=== PATIENT | female | born 1975 | race American Indian/Alaskan Native ===

== ENCOUNTER 2018-03-17 06:57 | Inpatient (IN) | payer BC ==
[~2018-03-17 06:57] MED LIST: Dexamethasone 4 mg/1 ml IVPB ONE; Lactated Ringer's 1,000 ML IV ONE
[2018-03-17] MEDS ORDERED: Bupivacaine 0.25% 20 ML INJ IJ ONE (07:25)
[2018-03-17] MEDS ORDERED: Lactated Ringer's 1,000 ML IV ONE ×2 (07:30→10:39)
[2018-03-17] MEDS ORDERED: Dexamethasone 4 mg/1 ml IVPB ONE (07:30)
[2018-03-17] MEDS ORDERED: ceFAZolin IV 1 gm in Dextrose 1 GM/50 ML BAG IVPB ONE (07:51)
[2018-03-17] MEDS ORDERED: ceFAZolin IV 2 gm in Dextrose 2 GM/50 ML BAG IVPB ONE (07:51)
[2018-03-17 08:01] VITALS: BMI 54.8
[2018-03-17] MEDS ORDERED: Propofol 10 mg/ml Inj (20 ML) ONE (08:03)
[2018-03-17] MEDS ORDERED: Midazolam 2 MG/2 ML VIAL ONE (08:03)
[2018-03-17] MEDS ORDERED: Rocuronium 10 mg/ml (5 ml) ONE (08:04)
[2018-03-17] MEDS ORDERED: Phenylephrine 10 mg/ml Inj ONE (08:08)
[2018-03-17] MEDS ORDERED: Neostigmine Methylsulfate 3mg/3ml Syringe IV ONE (09:40)
--- NOTE | 2018-03-17 09:53 | PCM.SURG1 ---
Surgeon's Initial Post Op Note - Surgeon's Notes Surgeon: Barbara Stock Associate: Summer Type of Anesthesia: General Endo Anesthesia Administered By: Cindy Pre-Operative Diagnosis: Morbid obesity Operative Findings: Extensive adhesions of omentum to the anterior abdominal wall as well as adhesions between stomach and liver with near fusion in parts Post-Operative Diagnosis: Morbid obesity Operation Performed: Laparoscopic sleeve gastrectomy, lysis of adhesions, TAP block, upper endoscopy Specimen/Specimens Removed: Partial gastrectomy Estimated Blood Loss: EBL {In ML}: 25 Blood Products Given: N/A Drains Used: No Drains Post-Op Condition: Good Date of Surgery/Procedure: 03/17/18 Time of Surgery/Procedure: 09:52
[2018-03-17] MEDS ORDERED: HYDROmorphone 0.5 mg/0.5 ml ISec IVP PRN ×2 (09:54→09:59)
[2018-03-17] MEDS ORDERED: Dextrose 5%/Lactated Ringer's 1,000 ML IV SCH (10:00)
[2018-03-17] MEDS: Lactated Ringer's 1,000 ML IV SCH ×4 (13:59→23:50)
[2018-03-17 15:48] VITALS: RESP 20
--- NOTE | 2018-03-17 20:32 | OP ---
Copied To: Ne Wheeler MD Attending MD: Ne Wheeler MD PROCEDURE DATE: 03/17/2018 OPERATING SURGEON: Ne Wheeler MD PREOPERATIVE DIAGNOSIS: Morbid obesity. POSTOPERATIVE DIAGNOSIS: Morbid obesity. PROCEDURE: Intraoperative upper endoscopy. TYPE OF ANESTHESIA: General. ESTIMATED BLOOD LOSS: None. SPECIMEN: None. INDICATIONS: This is a 42-year-old female undergoing laparoscopic sleeve gastrectomy. PROCEDURE: An Olympus upper endoscope was inserted into the oropharynx and passed bluntly through the hypopharynx into the proximal esophagus. Insufflation was begun and the scope was passed under direct vision through the proximal, mid, and distal esophagus with care taken to look at a full 360 degrees of exposed mucosa. Beginning at the fundus, the gastric sleeve staple line was carefully examined and found to have no evidence of hemorrhage or intraluminal clot. All excess insufflated air was aspirated and the scope was withdrawn. The patient remained intubated in the operating room for completion of the operative procedure. Ne Wheeler MD
--- NOTE | 2018-03-17 20:52 | OP ---
Copied To: Mahendra Jimenez MD Attending MD: Mahendra Jimenez MD PROCEDURE DATE: 03/17/2018 ANESTHESIA: General. PREOPERATIVE DIAGNOSIS: Morbid obesity. POSTOPERATIVE DIAGNOSIS: Morbid obesity. PROCEDURES: Laparoscopic sleeve gastrectomy, TAP block, upper endoscopy, lysis of adhesions. SURGEON: Mahendra Jimenez MD. BLUEPRINT TRIMMER: Ne Wheeler MD. COMPLICATIONS: None. SPECIMEN: Partial gastrectomy. BLOOD LOSS: Approximately 25 mL. FINDINGS: Extensive omental adhesions to the anterior abdominal wall as well as adhesions between stomach and liver with near fusion. INDICATION: This is a 42-year-old female with a history of morbid obesity, who meets the NIH criteria for bariatric surgery. PROCEDURE: The patient was brought to the operating room and placed in supine position on the operating room table. General endotracheal anesthesia was induced by the anesthesia team. Precautions were taken to pad the patient well using gel padding in the back, feet, and arms to prevent postoperative pain. The patient was prepped and draped in the usual sterile fashion. A time out took place among the entire OR team to ensure proper patient, procedure and antibiosis. The lead assistant manager placed a Veress needle in the left upper quadrant below the costal margin to establish pneumoperitoneum to 15 mmHg. A 12-mm Optiview port along with 0-degree laparoscope was inserted in the midline, superior to the umbilicus with no evidence of injury upon entering. Next, the scope was changed to 45 degree and the Veress needle was removed under vision. Under laparoscopic guidance, a transversus abdominis plane block was performed by injecting 30 cc of 0.25% Marcaine into multiple sites along the left flank. The solution was injected into the plane between the internal oblique and the transversus abdominis muscles to aid in postoperative analgesia. This procedure was repeated on the right flank for maximum efficacy. A 15-mm trocar was placed in the right midclavicular line above the umbilicus. A limited diagnostic laparoscopy was performed revealing omental adhesions to the anterior abdominal wall. Adhesions were lysed sharply with the harmonic scalpel to allow for placement of additional trocars. Two 5-mm trocars were placed in the right and left flank below the costal margin. All trocars were placed under direct vision. The entire procedure was performed laparoscopically. The primary surgeon operated from the right side of the patient and the lead assistant manager operated from the left side of the patient. The upper abdomen was explored and it was noted that there were adhesions between the liver and the stomach such that they appeared to be fusion. Careful dissection along the liver edge was performed both bluntly and sharply until the two structures could be . At this point, a liver retractor ( Aye) was inserted through a separate stab incision 1 cm below the xiphoid process and was attached to a retracting device secured to the left side of the table. The lesser sac was entered by first dividing the gastrocolic ligament along the midpoint of the greater curvature of the stomach with a harmonic scalpel. The dissection was performed close to the stomach to avoid the gastroepiploic artery. Dissection proceeded proximally toward the angle of His. The lead assistant manager dissected out and ligated the short gastric arteries with the harmonic scalpel. Care was taken to avoid injury to the spleen. We then returned to the point, where the dissection began more distally on the greater curvature. The lead assistant manager used the Harmonic scalpel and continued distally along the greater curvature to approximately 4 to 6 cm from the pylorus. At this point, a 40-[place]anese bougie was inserted by the anesthesia team and was aligned medially and passed under vision to the region of the pylorus. The lead assistant manager grasped the greater curvature of the stomach with a loop grasper and retracted laterally. The sleeve gastrectomy was performed using sequential firings of a 60-mm Endo DARA stapler ([place]). For the initial two firings, a green load was used where the stomach tissue was thicker. The remaining firings were done using gold and blue loads. Care was taken to avoid narrowing the distal aspect of the sleeve. The anterior and posterior vagus nerves were identified and preserved throughout their course. Sequential firings of the stapler continued up to the angle of His. Care was taken to ensure equal tension along the entire staple line to prevent kinking of the sleeve. The entire staple line was reinforced with SeamGuard buttressing material to help reduce the chance of bleeding or a leak. An upper endoscopy was performed (to be dictated separately) in order to evaluate the gastric mucosa as well as perform a leak test. The distal stomach was occluded and the upper abdomen was filled with saline solution in order to submerge the entire staple line. Air was insufflated and no bubbles were visualized. The saline was suctioned off and the scope removed. The resected stomach was placed in a large EndoCatch bag for later removal. The area was carefully inspected and hemostasis ensured with both electrocautery as well as using Surgicel Snow. The fascia of the 15-mm port site was closed using 0 Vicryl interrupted suture on the Endoclose device. The liver retractor and all ports were removed under vision and pneumoperitoneum evacuated. The specimen was removed through the 15-mm port site and was sent off the field. The skin on all port sites was closed with 4-0 Monocryl subcuticular sutures followed by Dermabond for dressing. All sponge and instruments counts were correct at the end of the procedure. The patient tolerated the procedure well, was extubated in the operating room and was transferred to the recovery room in stable condition. Mahendra Jimenez MD MTDRhona
[2018-03-18 00:48] VITALS: O2SAT 97
[2018-03-18] MEDS: Lactated Ringer's 1,000 ML IV SCH ×3 (02:57→11:27)
[2018-03-18 05:05] VITALS: BP 127/79
[2018-03-18] MEDS ORDERED: Iohexol 240 200 ML ONE (08:13)
[2018-03-18] MEDS ORDERED: Barium Sulfate for Susp 96% w/w 176g Bottle PR ONE (08:13)
[2018-03-18 08:17] LABS: BASO # 0.1 K/uL (0.0-0.2); BASO % 0.5 % (0.0-2.0); EOS % 0.1 % (0.0-4.0); HEMOGLOBIN 12.5 g/dL (11.0-16.0); LYMPH # 1.8 K/uL (1.0-4.3); LYMPH % 16.7 % (20.0-40.0); MEAN CELL VOLUME 84.8 fL (81.0-99.0); MEAN CORPUSCULAR HEMOGLOBIN 28.7 pg (27.0-31.0); MEAN CORPUSCULAR HGB CONC 33.9 g/dL (33.0-37.0); MONO # 0.8 K/uL (0.0-0.8); MONO % 6.9 % (0.0-10.0); NEUT # 8.3 K/uL (1.8-7.0); NEUT % 75.8 % (50.0-75.0); RBC 4.35 Mil/uL (3.80-5.20); RED CELL DISTRIBUTION WIDTH 13.9 % (11.5-14.5)
[2018-03-18 08:37] LABS: BLOOD UREA NITROGEN 10 mg/dL (7-17); CALCIUM 8.5 mg/dl (8.6-10.4); GFR AFRICAN-AMERICAN > 60; GFR NON-AFRICAN AMERICAN > 60
[2018-03-18 08:57] VITALS: PULSE 84; TEMP 98.5
--- NOTE | 2018-03-18 09:40 | CP.PCM.PN ---
Subjective - Date & Time of Evaluation Date of Evaluation: 03/18/18 Time of Evaluation: 09:00 - Subjective Subjective: doing well. No complaints Objective - Vital Signs/Intake and Output Vital Signs (last 24 hours): Temp Pulse Resp BP Pulse Ox 98.5 F 84 20 127/79 97 03/18/18 07:30 03/18/18 07:30 03/18/18 07:30 03/18/18 05:04 03/18/18 07:30 Intake and Output: 03/18/18 03/18/18 06:59 18:59 Intake Total 1200 Balance 1200 - Medications Medications: Current Medications Enoxaparin Sodium (Lovenox) 40 mg SC DAILY [facility] Famotidine (Pepcid) 20 mg IVP Q12 [facility] Last Admin: 03/17/18 21:04 Dose: 20 mg Hydromorphone HCl (Dilaudid) 1 mg IVP Q2H PRN PRN Reason: Pain, moderate (4-7) Last Admin: 03/17/18 16:50 Dose: 1 mg Lactated Ringer's (Lactated Ringer's) 1,000 mls @ 150 mls/hr IV .Q6H40M [facility] Last Admin: 03/18/18 06:02 Dose: 150 mls/hr Dextrose/Lactated Ringer's (Dextrose 5%/Lactated Ringer's) 1,000 mls @ 40 mls/ hr IV .Q24H [facility] Ketorolac Tromethamine (Toradol) 30 mg IVP Q6 [facility] Stop: 03/19/18 06:01 Last Admin: 03/18/18 06:03 Dose: 30 mg Metoclopramide HCl (Reglan) 10 mg IVP Q6H PRN PRN Reason: Nausea/Vomiting Last Admin: 03/18/18 06:04 Dose: 10 mg Ondansetron HCl (Zofran Inj) 4 mg IVP ONCE PRN PRN Reason: Nausea/Vomiting Last Admin: 03/17/18 11:30 Dose: 4 mg - Labs Labs: 03/18/18 08:03 03/18/18 08:03 - GI/Abdominal Exam Additional comments: incision c/d/i Assessment and Plan - Assessment and Plan (Free Text) Assessment: s/p Sleeve, cholecystectomy, liver bx and HH repair Plan: clears after normal UGI [place] OOb and ambulate d/c planing
[2018-03-18] MEDS ORDERED: Enoxaparin 40 mg Syringe SC SCH (10:01)
--- NOTE | 2018-03-18 14:26 | RAD ---
Date of service: 03/18/2018 PROCEDURE: Limited Upper GI examination HISTORY: Status post gastric sleeve surgery COMPARISON: None TECHNIQUE: Single-contrast upper GI examination was performed with 75 mL Omnipaque and 50 mL barium. FINDINGS: Psychotherapist Social Worker view of the abdomen demonstrates surgical clips in a linear fashion in the epigastrium. There is moderate amount of stool in the colon. The bowel gas pattern is nonobstructive. The patient ingested water-soluble contrast without difficulty. There are postsurgical changes along greater curvature of the gastric fundus and body with a long tubular pouch and normal appearance of the gastric antrum. There is no evidence of extraluminal leakage of contrast. The total fluoroscopic time was 1.5 minutes. IMPRESSION: Status post gastric sleeve surgery, normal appearance of the gastric pouch without evidence for free or contained leak.
== END 2018-03-18 15:00 | disposition home or self-care (01) | DRG 621 ==
LOC: C.9S 06:57 → C.6T 10:52
PROVIDERS: ADMIT Surgery; ATTEND Surgery
PROC: 0DB64Z3 Excision of Stomach, Percutaneous Endoscopic Approach, Vertical (ICD-10-PCS; principal; 2018-03-17 07:30)
DX: E66.01 Morbid (severe) obesity due to excess calories (principal); Z68.44 Body mass index [BMI] 60.0-69.9, adult